=== PATIENT | female | born 1930 | race Caucasian/White ===

== ENCOUNTER → 2016-10-30 | Outpatient (CLI) | payer BC ==
--- NOTE | 2016-10-30 12:26 | MAMMOGRAPHY REPORT ---
BILATERAL DIGITAL SCREENING MAMMOGRAM WITH CAD: 10/30/2016 CLINICAL HISTORY: Routine screening. Patient has no complaints. TECHNIQUE: Current study was also evaluated with a Computer Aided Detection (CAD) system. Bilatera l CC and MLO views were obtained. COMPARISON: Comparison is made to exams dated: 10/14/2015 mammogram, 10/10/2013 mammogram, 10/11/2014 ma mmogram, 08/17/2012 mammogram, 11/24/2011 mammogram, and 11/07/2010 mammogram - [facility] enter. BREAST COMPOSITION: There are scattered areas of fibroglandular density in both breasts. FINDINGS: No suspicious masses, calcifications, or areas of architectural distortion are noted in e ither breast. There has been no significant interval change compared to prior exams. Scattered bila teral benign-appearing calcifications are not significantly changed. Nodular 9 mm asymmetry seen wi thin the right slightly lateral breast middle depth on the cc view is stable dating back to at least the 2008 exam. IMPRESSION: ACR BI-RADS CATEGORY 2: BENIGN There is no mammographic evidence of malignancy. A 1 year screening mammogram is recommended. The p atient will receive written notification of the results. Approximately 10% of breast cancers are not detected with mammography. A negative mammographic repor t should not delay biopsy if a clinically suggestive mass is present. Adrianne Celis M.D. /:10/30/2016 12:04:22 Plier Worker: Katie MOROCHO)(M), [facility] letter sent: Normal 1/2 BI-RADS Code: ACR BI-RADS Category 2: Benign
== END | disposition home or self-care (01) ==
LOC: C.MAMM 10:45
PROVIDERS: ATTEND Internal Medicine
DX: Z12.31 Encounter for screening mammogram for malignant neoplasm of breast (principal)

== ENCOUNTER → 2016-11-09 | Outpatient (CLI) | payer BC ==
[2016-11-09 10:29] LABS: ALKALINE PHOSPHATASE 96 U/L (45-117); ALT/SGPT 24 U/L (12-78); BLOOD UREA NITROGEN 25 mg/dl (7-18); BUN/CREATININE RATIO 24.8 (10-20); CALCIUM 8.8 mg/dl (8.5-10.1); CARBON DIOXIDE 26 mmol/L (21-32); CHLORIDE 111 mmol/L (98-107); CHOLESTEROL 133 mg/dl (0-200); GLUCOSE 84 mg/dl (70-99); POTASSIUM 4.2 mmol/L (3.5-5.1); SODIUM 145 mmol/L (136-145); TRIGLYCERIDES 120 mg/dl (0-150); VERY LOW DENSITY LIPOPROT CALC 24 mg/dl
[2016-11-09 10:36] LABS: ALB/GLOB RATIO 0.9 (0.9-2); AST/SGOT 23 U/L (15-37); CHOLESTEROL/HDL RATIO 3.3; HDL CHOLESTEROL 40 mg/dl; LDL CHOLESTEROL CALCULATED 69 mg/dl
== END | disposition home or self-care (01) ==
LOC: C.LABFOXMH 09:29
PROVIDERS: ATTEND Internal Medicine
DX: E78.5 Hyperlipidemia, unspecified (principal)

== ENCOUNTER → 2016-11-26 | Outpatient (CLI) | payer BC | END | disposition home or self-care (01) | LOC: C.MAMM 09:53 | PROVIDERS: ATTEND Internal Medicine | DX: M85.851 Other specified disorders of bone density and structure, right thigh (principal); M85.852 Other specified disorders of bone density and structure, left thigh ==

== ENCOUNTER → 2017-11-01 | Outpatient (CLI) | payer BC ==
--- NOTE | 2017-11-01 15:52 | MAMMOGRAPHY REPORT ---
BILATERAL DIGITAL SCREENING MAMMOGRAM TOMOSYNTHESIS WITH CAD: 11/01/2017 CLINICAL HISTORY: Routine screening. Patient has no complaints. TECHNIQUE: Breast tomosynthesis in addition to standard 2D mammography was performed. Current study was also evaluated with a Computer Aided Detection (CAD) system. COMPARISON: Comparison is made to exams dated: 10/30/2016 mammogram, 10/14/2015 mammogram, 10/11/2014 ma mmogram, 10/10/2013 mammogram, 08/17/2012 mammogram, and 12/16/2011 mammogram - [facility] nter. BREAST COMPOSITION: There are scattered areas of fibroglandular density in both breasts. FINDINGS: No suspicious masses, calcifications, or areas of architectural distortion are noted in ei ther breast. There has been no significant interval change compared to prior exams. Bilateral asymme tries and scattered bilateral benign-appearing calcifications are not significantly changed. IMPRESSION: ACR BI-RADS CATEGORY 2: BENIGN There is no mammographic evidence of malignancy. A 1 year screening mammogram is recommended. The pa tient will receive written notification of the results. Approximately 10% of breast cancers are not detected with mammography. A negative mammographic report should not delay biopsy if a clinically suggestive mass is present. Adrianne Celis M.D. /:11/01/2017 14:24:43 Small Engine Technician: Estela Baltazar, [facility] letter sent: Normal 1/2 BI-RADS Code: ACR BI-RADS Category 2: Benign
== END | disposition home or self-care (01) ==
LOC: C.MAMM 10:00
PROVIDERS: ATTEND Internal Medicine
DX: Z12.31 Encounter for screening mammogram for malignant neoplasm of breast (principal)

== ENCOUNTER → 2017-11-11 | Outpatient (CLI) | payer BC ==
[2017-11-11 08:50] LABS: ALBUMIN 3.1 gm/dl (3.4-5.0); ALT/SGPT 20 U/L (12-78); BLOOD UREA NITROGEN 26 mg/dl (7-18); CARBON DIOXIDE 26 mmol/L (21-32); CHOLESTEROL 125 mg/dl (0-200); CREATININE 1.12 mg/dl (0.60-1.20); GLUCOSE 81 mg/dl (70-99); POTASSIUM 4.5 mmol/L (3.5-5.1); SODIUM 142 mmol/L (136-145)
[2017-11-11 08:53] LABS: ALKALINE PHOSPHATASE 81 U/L (45-117); AST/SGOT 19 U/L (15-37); LDL CHOLESTEROL CALCULATED 60 mg/dl; TOTAL PROTEIN 6.4 gm/dl (6.4-8.2)
== END | disposition home or self-care (01) ==
LOC: C.LABFOXMH 08:07
PROVIDERS: ATTEND Internal Medicine
DX: E78.5 Hyperlipidemia, unspecified (principal)

== ENCOUNTER 2019-06-12 09:14 | Inpatient (IN) ==
[2019-06-12] MEDS ORDERED: ONDANSETRON INJ 2 MG/ML 2 ML VIAL IV STA (09:32)
[2019-06-12] MEDS: HYDROmorphone INJ 0.5 MG/0.5 ML SYR IV PRN ×3 (09:42→12:20)
[2019-06-12] MEDS ORDERED: SODIUM CHLORIDE 0.9% 500 ML IV SCH (09:45)
[2019-06-12 09:52] LABS: Basophils # (auto) 0.04 K/uL (0-0.2); Basophils % (auto) 0.2 %; Eosinophils % (auto) 1.2 %; Hematocrit (blood only) 42.9 % (37-47); Hemoglobin 13.9 g/dL (12.0-16.0); Immature Granulocytes # (auto) 0.05 K/uL (0.00-0.02); Immature Granulocytes % (auto) 0.3 %; Lymphocytes # (auto) 1.08 K/uL (1.2-3.4); Lymphocytes % (auto) 6.5 %; Mean Corpuscular Hemoglobin 29.6 pg (25-34); Mean Corpuscular Hgb Conc 32.4 g/dL (32-36); Mean Corpuscular Volume 91.3 fL (80-100); Mean Platelet Volume 10.9 fL (7.4-10.4); Monocytes # (auto) 0.06 K/uL (0.11-0.59); Monocytes % (auto) 0.4 %; Neutrophils # (auto) 15.18 K/uL (1.4-6.5); Neutrophils % (auto) 91.4 %; Platelet Count 262 K/uL (130-400); RDW Coefficient of Variation 17.8 % (11.5-14.5); RDW Standard Deviation 60.2 fL (36.4-46.3); White Blood Count 16.61 K/uL (4.8-10.8)
[2019-06-12 10:02] LABS: Albumin Level 3.5 gm/dl (3.4-5.0); BUN Creatinine Ratio 20.5 (10-20); Calcium 9.5 mg/dl (8.5-10.1); Creatinine Clr Calc Pharmacy 29.7 ml/min; Est GFR (African American) 43.5; Est GFR (Non-African American) 37.6; Potassium 4.3 mmol/L (3.5-5.1)
--- NOTE | 2019-06-12 10:02 | CT Scan Report ---
CT abd pelvis wo con CT DOSE: 613.99 mGy.cm HISTORY: Flank pain left flank pain, prior appy, hysterectomy TECHNIQUE: Multiaxial CT images of the abdomen and pelvis were performed without contrast. A dose lo wering technique was utilized adhering to the principles of ALARA. COMPARISON STUDY: None. FINDINGS: Minimal nonspecific bibasilar interstitial change. Small hiatal hernia. Multiple calcified splenic granulomas. Liver and spleen are unremarkable. Right kidney is negative for hydronephrosis. Left kidney shows moderate hydroureteronephrosis. Several punctate nonobstructing mid and lower pole left renal calcifications. There is a 3 mm obstructing calculus mid left ureter. Bladder is midline. Nonobstructive bowel pattern. Findings of chronic sigmoid diverticulosis. IMPRESSION: 1. 3 mm obstructing calculus mid left ureter. 2. Moderate left hydroureteronephrosis. 3. Several nonobstructing mid and lower pole left renal calcifications. The above report was generated using voice recognition software. It may contain grammatical, syntax or spelling errors. Electronically signed by: Jonatan Leach M.D. 06/12/2019 10:01 AM
[2019-06-12 10:04] LABS: Bilirubin,Total 0.4 mg/dl (0.2-1); Globulin 3.6 gm/dl (2.5-4.0); Total Protein 7.1 gm/dl (6.4-8.2)
--- NOTE | 2019-06-12 10:48 | History & Physical Report ---
Date of Service June 12, 2019 Assessment & Plan (1) Ureterolithiasis: (2) PARVIZ (acute kidney injury): (3) Vomiting: (4) Leukocytosis: - Admit to med surg - WBC elevated at 16K, likely secondary to UTI, urine sample was collected at [facility] this morning. I spoke with Justine, nurse at the medical house who reported the UA was trace leuko, trace nitrate. Culture is pending from there. Nurse denies that pt complained of urinary complaints. - Follow UA and UCx - Start on rocephin IV - CT abd/pelvis showing a 3 mm obstructing calculus mid left ureter. Moderate left hydroureteronephrosis. Several nonobstructing mid and lower pole left renal calcifications. - NSS at 150 ml/hr, allow diet if tolerates with antiemetics - Strain all urine - Continuous pulse ox with dilaudid administration and somnolence during exam. Pt requiring supplemental O2 at 6L with sats in mid 90s. Does not wear O2 at baseline. Pt does wake up and participates appropriately with discussion. - Start flomax - Continue MS 2 mg IV Q4H prn and toradol 30 mg IV Q6H prn - Follow am PRP, BUN 26 and Cr. of 1.26, baseline appears to be ~0.90. - Zofran and Tylenol - Consider urology consultation if does not pass stone- pt has not had a kidney stone in the past. (5) Anemia: - Continue iron supplementation (6) DVT prophylaxis: - teds, heparin subq, ambulatory once more awake and with nurse. Pt ambulates at baseline without assistive device. PT/OT consults. Dispo: From [facility], likely to be here 1-2 days in hospital. History of Present Illness Primary Care Provider: [facility] This is an 89 yo F with PMHx of anemia on iron supplementation who presents with acute onset of left sided flank pain and lower abdominal pain which woke her from sleep at 6:44 am. Pt notes she thought this was a pulled muscle initially, so did some stretching and exercise, but did not improve. She went back to bed but pain was not improved with anything. She became nauseous and vomited 5 times since this morning. Pt did not take any of her morning medications today. She has received 2 doses of dilaudid, a total of 1mg, since being in the ER and her pain is essentially resolved, but she is somnolent upon my exam. Her is present at bedside. notes that a urine sample was taken at [facility] and there was possibly a UTI, however urine sample is not available here yet as she has not voided. WBC is 16K, Cr. elevated at 1.28, BUN 26. CT abd/pelvis showing a 3 mm obstructing calculus mid left ureter. Moderate left hydroureteronephrosis. Several nonobstructing mid and lower pole left renal calcifications. Allergies Allergy/AdvReac Type Severity Reaction Status Date / Time No Known Allergies Allergy Unverified 06/12/19 10:11 Home Medications Home Medications Medication Instructions Recorded Confirmed Type acetaminophen [Tylenol Extra 500 mg PO Q6H PRN 06/12/19 06/12/19 History Strength] [id number] 1 tab PO QAM 06/12/19 06/12/19 History [Women's Complex] ferrous sulfate 325 mg PO BID 06/12/19 06/12/19 History ranitidine HCl 150 mg PO BID 06/12/19 06/12/19 History simvastatin 20 mg PO HS 06/12/19 06/12/19 History vit C,W-Od-gdhwn-lutein-zeaxan 1 tab PO QAM 06/12/19 06/12/19 History [PreserVision AREDS-2] Past Med/Surg History Medical History Anemia H/O: hysterectomy Surgical History History of appendectomy Social History Preferred Language: Syriac Communication Ability: Effective Program Management Intern Required: No Beliefs That Will Affect Care: None Current Living Situation: Spouse Other Information That Helps Us Care for You: No Feels Safe at Home: Yes Safety Concerns: Feels Safe At This Time Smoking Status: Never smoker Do You Dip or Chew Tobacco: No ; Second Hand Exposure: No ; Tobacco Cessation Education Requested by Patient: No Hx Alcohol Use: No Hx Substance Use: No Review of Systems Review of Systems: Constitutional: No fever, sweats or chills Eyes: No diplopia, no worsening or blurred vision ENT: normal hearing, no trouble swallowing Respiratory: No cough, sputum, dyspnea at rest or on exertion Cardiovascular: No chest pain, tightness or palpitations Abdomen: As per HPI. No diarrhea or constipation Musculoskeletal: No joint pain, calf pain, swelling Neurologic: No weakness, numbness/tingling, or balance problems Psychiatric: No anxiety or depression Skin: No rash or itch Physical Exam Physical Exam: General: awakens to verbal stimuli, answers questions appropriately, no apparent distress Head: Normocephalic, atraumatic ENT: + pupils are pinpoint, PERRL, EOMI, no pharyngeal exudate, mucous membranes moist Chest: Clear to auscultation, on room air, no adventitious breath sounds Cardiac: Regular rate and rhythm, no murmur, no JVD, normal peripheral pulses, good capillary refill Abdominal: NABS x 4 quadrants, soft, nontender to palpation, no rebound, guarding or tenderness Extremities: Normal inspection, no peripheral edema or erythema, calfs nontender to palpation Psych: Normal mood and affect Neuro: AAO x 3, no motor deficits, speech is clear Results & Data Vital Signs (Past 12 Hours) Vital Signs Temp Pulse Resp BP Pulse Ox 06/12/19 09:26 36.7 C 65 19 165/[address] abd pelvis wo con CT DOSE: 613.99 mGy.cm HISTORY: Flank pain left flank pain, prior appy, hysterectomy TECHNIQUE: Multiaxial CT images of the abdomen and pelvis were performed without contrast. A dose lowering technique was utilized adhering to the principles of ALARA. COMPARISON STUDY: None. FINDINGS: Minimal nonspecific bibasilar interstitial change. Small hiatal hernia. Multiple calcified splenic granulomas. Liver and spleen are unremarkable. Right kidney is negative for hydronephrosis. Left kidney shows moderate hydroureteronephrosis. Several punctate nonobstructing mid and lower pole left renal calcifications. There is a 3 mm obstructing calculus mid left ureter. Bladder is midline. Nonobstructive bowel pattern. Findings of chronic sigmoid diverticulosis. IMPRESSION: 1. 3 mm obstructing calculus mid left ureter. 2. Moderate left hydroureteronephrosis. 3. Several nonobstructing mid and lower pole left renal calcifications. Code Status & VTE Plan Code Status Full Code - discussed with pt and at bedside. Supervising Physician Co-Signing Physician Notes Patient seen and examined, chart reviewed, case discussed with FABRIZIO Gates and I agree with her assessment and plan as documented above. Briefly, patient is an 89-year-old female stenting with a 3 mm obstructing calculus in the mid left ureter. Patient with no prior history of renal stones. Severe pain on presentation now controlled with administration of Dilaudid. On physical exam she is afebrile, mildly hypertensive otherwise hemodynamically stable, no acute distress. She is sleepy after receiving Dilaudid but arousable and answering questions appropriately. Skinintact, no rash HEENTnormocephalic, atraumatic, pupils equal round reactive to light, moist mucous membranes, neck supple HeartS1-S2 present, no murmurs rubs gallops Lungsequal air entry bilaterally, no rales/rhonchi/wheezes Abdomen-bowel sounds present, soft, mildly tender with deep palpation in the lower abdomen, no rebound/guarding/peritoneal signs Extremitiesno edema Labs and images reviewed, significant for WBC=16.61 with increased neutrophils. Mild increase in BUN and Cr to 26 and 1.28. UA positive Assessment/Plan: 89yo C female with obstructing renal stone -Admit to medical floor. Pain/nausea control, IVF/urine strainer, Rocephin. Urology consultation appreciated -Remainder of plan as above PG Care Time/CCT Total # of Minutes Spent Total Time Spent with Patient: Total time spent is greater than 50% in coordination of care (as documented) at patient's floor/unit and/or counseling patient: (1) Leukocytosis Leukocytosis type: unspecified Qualified Code(s): D72.829 - Elevated white blood cell count, unspecified (2) Vomiting Nausea presence: with nausea Vomiting Intractability: non-intractable Vomiting type: unspecified Qualified Code(s): R11.2 - Nausea with vomiting, unspecified
[2019-06-12] MEDS ORDERED: ONDANSETRON INJ 2 MG/ML 2 ML VIAL IV PRN (10:51)
[2019-06-12] MEDS ORDERED: SODIUM CHLORIDE 0.9% 1000ML 1,000 ML IV STA (11:13)
[2019-06-12 12:16] LABS: Appearance Urine Cloudy (Clear); Bacteria Urine Automated 3+ (Negative); Bilirubin Urine Negative (Negative); Blood Urine Trace (Negative); Color Urine Yellow; Epithelial Cell Urine Auto >30 /lpf (0-5); Glucose Urine UA Negative (Negative); Ketones Urine Negative (Negative); Leukocyte Esterase Urine 3+ (Negative); Nitrite Urine Positive (Negative); Protein Urine Negative (Negative); RBC Urine Automated 0-4 /hpf (0-4); Specific Gravity Urine 1.019 (1.000-1.030); Urobilinogen Urine Negative (Negative); WBC Urine Automated >30 /hpf (0-5)
[2019-06-12] MEDS ORDERED: KETOROLAC TROMETHAMINE 15 MG/ML VIAL IV PRN (12:50)
[2019-06-12] MEDS ORDERED: MoRPHine SULFATE 2 MG/ML CARP IV PRN (12:50)
[2019-06-12] MEDS: SODIUM CHLORIDE 0.9% 1000ML 1,000 ML IV SCH ×2 (12:52→20:40)
[2019-06-12] MEDS: TAMSULOSIN HCL 0.4 MG CAP PO SCH (13:10)
[2019-06-12] MEDS: cefTRIAXone SODIUM 1,000 MG in DEXTROSE 5% 50 ML IV SCH (13:11)
--- NOTE | 2019-06-12 16:29 | XRay Report ---
XR chest 1V portable CLINICAL HISTORY: 89 years-old Female presenting with hypoxia. TECHNIQUE: Portable upright AP view of the chest was obtained. COMPARISON: None. FINDINGS: Atherosclerosis of the aortic arch. Cardiac silhouette normal in size. Bibasilar bandlike opacities. Trace left pleural effusion suspected. No pneumothorax. Degenerative changes of the thoracic spine. D egenerative changes of the left glenohumeral joint. Possible underlying osteopenia. Upper abdomen nor mal. IMPRESSION: 1. Bibasilar atelectasis. 2. Suspected trace left pleural effusion. Electronically signed by: Rupesh Mcdowell M.D. 06/12/2019 4:28 PM
--- NOTE | 2019-06-12 16:45 | Emergency Department Note ---
Entered by Jose Ramon Hebert acting as a scribe for Donald Santa MD ED Provider Note CHIEF COMPLAINT: Left flank pain HISTORY OF PRESENT ILLNESS: The patient is an 89 year old female who presents to the Emergency Room with complaints of constant left flank pain that started suddenly this morning about 3 hours ago. The patient rates the pain as an 8/10 and notes nothing makes it better or worse. The patient notes that shortly after the pain woke her up, she developed nausea and started vomiting as well. The patient adds that she also has some pain in her left lower quadrant of her abdomen. The patient was sent here from [facility] where she already provided a urine sample. The patient reports that she has a history of an appendectomy and hysterectomy. She also has a history of anemia and is on iron so her stool is normally dark at baseline. Pt denies LOC, headache, fevers, chills, diaphoresis, visual changes, neck pain, chest pain, breathing difficulties, hematochezia, urinary symptoms, numbness, weakness, lymphadenopathy, rash, or other complaints. REVIEW OF SYSTEMS: See HPI for pertinent positives and negatives. A total of ten systems were reviewed and were otherwise negative. PMHx/PSHx: Anemia, Appendectomy, Hysterectomy SOCIAL HISTORY: Patient lives at an assisted living facility. PHYSICAL EXAM: GENERAL: Awake, alert, uncomfortable-appearing, in moderate distress actively dry heaving on exam. HENT: Normocephalic, atraumatic. Oropharynx unremarkable. EYES: Normal conjunctiva. Sclera non-icteric. NECK: Inspection normal. Non-tender. Supple. No nuchal rigidity. FROM. No masses. RESPIRATORY: Clear to auscultation. No wheezes. No rales. Normal respiratory effort. CARDIAC: Normal rate. Normal rhythm. No murmurs. No rubs. Extremities warm and well perfused. Pulses equal. No JVD. GI: Soft, non-distended. Mild LLQ tenderness. No rebound or guarding. No masses. RECTAL: Deferred. MUSCULOSKELETAL: Atraumatic. Left CVA tenderness. Chest examination reveals no tenderness. The back is symmetrical on inspection without obvious abnormality. No joint edema. LOWER EXTREMITIES: Calves are equal size bilaterally and non-tender. No edema. No discoloration. NEURO: Normal sensorium. No sensory or motor deficits noted. SKIN: No rash or jaundice noted. EMERGENCY DEPARTMENT COURSE: 929: Past medical records reviewed. The patient was evaluated in room A04B, and a complete history and physical examination were performed. 1012: I reevaluated the patient and her nausea has improved, however her pain is only slightly better. 1037: I checked on the patient and her pain is much better following the second dose of pain medications. Given the drop in her O2 saturation I put her on 4L. 1047: I spoke to Dr. Solis - [facility] Hospitalist about the patient's case. She is going to accept the patient for further evaluation. MEDICAL DECISION MAKING: Triage Nursing notes reviewed and agree them. Additional history obtained from the family. The patient's history was concerning for flank and abdominal pain. Differential diagnosis: Etiologies such as renal colic, appendicitis, diverticulitis, mesenteric ischemia, aortic pathology, infections, inflammatory bowel disease, PUD, biliary pathology, UTI, as well as others were entertained. Physical examination findings: As above. ER treatment provided: IV Dilaudid IV Zofran Supplemental oxygen On reassessment the patient felt better. Diagnostic interpretation by me: The labs revealed an unremarkable CBC and chemistry panel except for a leukocytosis which I suspect is from vomiting. Urinalysis pending. Imaging studies: CT scan abdomen pelvis was performed and reveals a 3 mm stone in the proximal right ureter with mild hydronephrosis. The patient is received several doses of IV pain medication and is requiring mesa pplement oxygen as she is sleepy and has some mild respiratory depression. With supplemental oxygen she is doing well. She is in no condition to go home at this time due to the pain from her kidney stone and effects of pain medication. Consultation: A consultation was placed with the hospitalist. The case was discussed and diagnostics were reviewed. The patient was evaluated in the ER for further treatment. IMPRESSION: Ureterolithiasis Left flank pain Vomiting Leukocytosis PLAN: Being evaluated by hospitalist The scribe's documentation has been prepared under my direction and personally reviewed by me in its entirety. I confirm that the note above accurately reflects all work, treatment, procedures, and medical decision making performed by me. Impression & Plan Ureterolithiasis, Left flank pain, Vomiting, Leukocytosis Past Med/Surg History Medical History Anemia H/O: hysterectomy Surgical History History of appendectomy Social History Preferred Language: Sinhala Communication Ability: Effective Infant And Toddler Teacher Required: No Beliefs That Will Affect Care: None Current Living Situation: Spouse Other Information That Helps Us Care for You: No Feels Safe at Home: Yes Safety Concerns: Feels Safe At This Time Smoking Status: Never smoker Do You Dip or Chew Tobacco: No ; Second Hand Exposure: No ; Tobacco Cessation Education Requested by Patient: No Hx Alcohol Use: No Hx Substance Use: No Results & Data Vital Signs Vital Signs - 24 hr 06/12/19 09:26 06/12/19 10:29 06/12/19 10:30 Temperature 36.7 C Temperature Source Oral Sepsis Recent Fever Within 48 Hours No Sepsis New/Unexplained Change in Mental Status No Sepsis Action Taken by Nursing No Action Required Pulse Rate 65 Pulse Rate [Apical] 72 79 Pulse Rhythm Regular Pulse Rhythm [Apical] Regular Regular Pulse Strength Normal Respiratory Rate 19 16 17 Respiratory Effort / Characteristics Non-Labored Spontaneous Non-Labored Spontaneous Non-Labored Spontaneous Respiratory Depth Normal Normal Normal Respiratory Pattern Regular Regular Regular Blood Pressure 165/45 H Blood Pressure [Left Arm] 178/64 H Blood Pressure Mean 85 Blood Pressure Mean [Left Arm] 102 Pulse Oximetry 94 86 L 92 Oxygen Delivery Method Room Air Room Air Nasal Cannula Oxygen Flow Rate 6 Home Medications Current Medication List: was personally reviewed by me Laboratory Data Attestation: I reviewed the patient's lab results. Result diagrams: 06/12/19 09:25 06/12/19 09:25 Lab Results 06/12/19 06/12/19 Range/Units 09:25 09:25 WBC 16.61 H (4.8-10.8) K/uL RBC 4.70 (4.2-5.4) M/uL Hgb 13.9 (12.0-16.0) g/dL Hct 42.9 (37-47) % MCV 91.3 (80-100) fL MCH 29.6 (25-34) pg MCHC 32.4 (32-36) g/dL RDW Std Deviation 60.2 H (36.4-46.3) fL RDW Coeff of Namita 17.8 H (11.5-14.5) % Plt Count 262 (130-400) K/uL MPV 10.9 H (7.4-10.4) fL Immature Gran % (Auto) 0.3 % Neut % (Auto) 91.4 % Lymph % (Auto) 6.5 % [place] % (Auto) 0.4 % Eos % (Auto) 1.2 % Baso % (Auto) 0.2 % Immature Gran # (Auto) 0.05 H (0.00-0.02) K/uL Neut # (Auto) 15.18 H (1.4-6.5) K/uL Lymph # (Auto) 1.08 L (1.2-3.4) K/uL [place] # (Auto) 0.06 L (0.11-0.59) K/uL Eos # (Auto) 0.20 (0-0.5) K/uL Baso # (Auto) 0.04 (0-0.2) K/uL Sodium 144 (136-145) mmol/L Potassium 4.3 (3.5-5.1) mmol/L Chloride 110 H (98-107) mmol/L Carbon Dioxide 25 (21-32) mmol/L Anion Gap 9.0 (3-11) BUN 26 H (7-18) mg/dl Creatinine 1.28 H (0.6-1.2) mg/dl Est Cr Clr Drug Dosing 29.7 ml/min Est GFR ( Amer) 43.5 Est GFR (Non-Af Amer) 37.6 BUN/Creatinine Ratio 20.5 H (10-20) Glucose 133 H (70-99) mg/dl Calcium 9.5 (8.5-10.1) mg/dl Total Bilirubin 0.4 (0.2-1) mg/dl AST 17 (15-37) U/L ALT 22 (12-78) U/L Alkaline Phosphatase 91 (45-117) U/L Total Protein 7.1 (6.4-8.2) gm/dl Albumin 3.5 (3.4-5.0) gm/dl Globulin 3.6 (2.5-4.0) gm/dl Albumin/Globulin Ratio 1.0 (0.9-2) Lipase 215 (73-393) U/L Administered Medications Sodium Chloride (Nss 1000ml) 1,000 mls @ 125 mls/hr IV .Q8H STA Stop: 09/09/19 19:12 Last Infusion: 06/12/19 13:34 Dose: 0 mls/hr Documented by: [id number] Admin: 06/12/19 11:20 Dose: 125 mls/hr Documented by: [id number] Sodium Chloride (Nss 1000ml) 1,000 mls @ 150 mls/hr IV .Q6H40M RENETTA Stop: 07/12/19 12:49 Last Admin: 06/12/19 12:52 Dose: 150 mls/hr Documented by: [id number] Ceftriaxone Sodium 1,000 mg/ (Dextrose) 50 mls @ 100 mls/hr IV Q24H RENETTA; Protocol Stop: 06/17/19 12:59 Last Infusion: 06/12/19 13:41 Dose: 0 mls/hr Documented by: [id number] Admin: 06/12/19 13:11 Dose: 100 mls/hr Documented by: [id number] Ondansetron HCl (Zofran) 4 mg IV Q4H PRN PRN Reason: Nausea And Vomiting Stop: 07/12/19 10:50 Last Admin: 06/12/19 15:53 Dose: 4 mg Documented by: [id number] Tamsulosin HCl (Flomax) 0.4 mg PO QAM RENETTA Stop: 07/12/19 13:14 Last Admin: 06/12/19 13:10 Dose: 0.4 mg Documented by: [id number] Discontinued Medications Hydromorphone HCl (Dilaudid) 0.5 mg IV Q15M PRN PRN Reason: Pain Stop: 06/26/19 09:31 Last Admin: 06/12/19 12:20 Dose: 0.5 mg Documented by: [id number] Admin: 06/12/19 10:05 Dose: 0.5 mg Documented by: [id number] Admin: 06/12/19 09:42 Dose: 0.5 mg Documented by: [id number] Sodium Chloride (Nss) 500 mls @ 999 mls/hr IV .Q31M RENETTA Stop: 06/12/19 10:15 Last Infusion: 06/12/19 10:51 Dose: 0 mls/hr Documented by: [id number] Admin: 06/12/19 09:42 Dose: 999 mls/hr Documented by: [id number] Morphine Sulfate (Morphine Sulfate) 2 mg IV Q4 PRN PRN Reason: Pain Stop: 06/26/19 12:49 Last Admin: 06/12/19 14:33 Dose: 2 mg Documented by: [id number] Ondansetron HCl (Zofran) 4 mg IV NOW STA Stop: 06/12/19 09:33 Last Admin: 06/12/19 09:42 Dose: 4 mg Documented by: [id number] Imaging Data Radiologist's Impression: Radiology results as stated below per my review and the radiologist's interpretation: CT abd pelvis wo con CT DOSE: 613.99 mGy.cm HISTORY: Flank pain left flank pain, prior appy, hysterectomy TECHNIQUE: Multiaxial CT images of the abdomen and pelvis were performed without contrast. A dose lowering technique was utilized adhering to the principles of ALARA. COMPARISON STUDY: None. FINDINGS: Minimal nonspecific bibasilar interstitial change. Small hiatal hernia. Multiple calcified splenic granulomas. Liver and spleen are unremarkable. Right kidney is negative for hydronephrosis. Left kidney shows moderate hydroureteronephrosis. Several punctate nonobstructing mid and lower pole left renal calcifications. There is a 3 mm obstructing calculus mid left ureter. Bladder is midline. Nonobstructive bowel pattern. Findings of chronic sigmoid diverticulosis. IMPRESSION: 1. 3 mm obstructing calculus mid left ureter. 2. Moderate left hydroureteronephrosis. 3. Several nonobstructing mid and lower pole left renal calcifications. The above report was generated using voice recognition software. It may contain grammatical, syntax or spelling errors. Electronically signed by: Jonatan Leach M.D. 06/12/2019 10:01 AM ECG Data Attestation: I personally reviewed and interpreted this ECG as follows: Indication: vomiting Rate (beats per minute): 70 Rhythm: sinus with SA Findings: no PVC, no ST depression and no ST elevation Blood Pressure Blood Pressure Findings: Elevated blood pressure Blood Pressure Disposition: Referred to patients primary care provider Discharge Plan Visit Data *Final* Discharge Date/Time: 06/12/19 12:16 Chief Complaint: Flank Pain ED Provider: Donald Santa Discharge Problem: Ureterolithiasis, Left flank pain, Vomiting, Leukocytosis Patient Disposition: Admitted As Inpatient Discharge Instructions Interventions: ED Discharge Assessment Last Done: 06/12/19 12:16 Discharge Problem: Vomiting Qualifiers: Vomiting type: unspecified Vomiting Intractability: non-intractable Nausea presence: with nausea Qualified Code(s): R11.2 - Nausea with vomiting, unspecified Leukocytosis Qualifiers: Leukocytosis type: unspecified Qualified Code(s): D72.829 - Elevated white blood cell count, unspecified The scribe's documentation has been prepared under my direction and personally reviewed by me in its entirety. I confirm that the note above accurately reflects all work, treatment, procedures, and medical decision making performed by me.
[2019-06-12 17:14] LABS: Base Excess ABG -3.3 mEq/L (-9-1.8); HCO3 ABG 20 mmol/L (19-24); Oxygen Saturation ABG 89.6 % (90-95); PCO2 ABG 32 mmHg (35-46); PO2 ABG 58 mm/Hg (80-95); pH ABG 7.42 (7.35-7.45)
[2019-06-12 17:15] LABS: Allen Test Pos (Pos)
[2019-06-12 20:14] LABS: Appearance Urine Cloudy (Clear); Bacteria Urine Automated 2+ (Negative); Bilirubin Urine Negative (Negative); Blood Urine Trace (Negative); Color Urine Yellow; Glucose Urine UA Negative (Negative); Ketones Urine Negative (Negative); Leukocyte Esterase Urine 2+ (Negative); Nitrite Urine Positive (Negative); Protein Urine Negative (Negative); Specific Gravity Urine 1.019 (1.000-1.030); Urobilinogen Urine Negative (Negative); WBC Urine Automated >30 /hpf (0-5)
[2019-06-12] MEDS: HEPARIN SOD 5,000 UNIT/0.5 ML VIAL SQ SCH (20:35)
[2019-06-12] MEDS: SIMVASTATIN 20 MG TAB PO SCH (20:35)
[2019-06-12] MEDS: FERROUS SULFATE 325 MG TAB PO SCH (20:35)
[2019-06-12] MEDS: ACETAMINOPHEN 325 MG TAB PO PRN (23:04)
[2019-06-13] MEDS: SODIUM CHLORIDE 0.9% 1000ML 1,000 ML IV SCH ×4 (03:12→23:31)
[2019-06-13 06:20] LABS: Hematocrit (blood only) 35.5 % (37-47); Hemoglobin 11.5 g/dL (12.0-16.0); Mean Corpuscular Hemoglobin 29.7 pg (25-34); Mean Corpuscular Hgb Conc 32.4 g/dL (32-36); Mean Corpuscular Volume 91.7 fL (80-100); Platelet Count 157 K/uL (130-400); RDW Coefficient of Variation 18.3 % (11.5-14.5); RDW Standard Deviation 62.2 fL (36.4-46.3); Red Blood Count 3.87 M/uL (4.2-5.4)
[2019-06-13 06:55] LABS: Albumin Globulin Ratio 0.7 (0.9-2); Albumin Level 2.4 gm/dl (3.4-5.0); BUN Creatinine Ratio 14.2 (10-20); Bilirubin,Total 0.3 mg/dl (0.2-1); Calcium 7.9 mg/dl (8.5-10.1); Creatinine Clr Calc Pharmacy 17.6 ml/min; Est GFR (African American) 23.1; Est GFR (Non-African American) 19.9; Globulin 3.2 gm/dl (2.5-4.0); Potassium 4.6 mmol/L (3.5-5.1); Total Protein 5.6 gm/dl (6.4-8.2)
[2019-06-13] MEDS: ACETAMINOPHEN 325 MG TAB PO PRN ×3 (06:58→23:31)
--- NOTE | 2019-06-13 08:31 | Urology Consultation ---
Date of Consultation June 13, 2019 Assessment & Plan (1) Left ureteral stone: 89yo F with 3mm left midureteral stone, moderate hydro; nitrite positive UA and leukocytosis this AM. Pt appears clinically stable, however I am concerned regarding her elevated WBC and Cr this AM. Requiring 5LNC with soft BP this AM. She is empirically on Rocephin while awaiting UC&S results. Keep NPO. I discussed these concerns with patient. She is agreeable to proceed with procedure if indicated today. We discussed possible need for ureteral stenting. Findings reviewed with Dr. Carrasquillo. Given her PARVIZ, leukocytosis in the context of an obstructing left ureteral stone, will proceed with OR for cysto, Left retrograde pyelogram and Left stent placement. Risks and benefits to be reviewed with patient by Dr. Carrasqulilo. OR notified. Preoperative CXR and EKG completed. On Rocephin empirically. History of Present Illness Reason for Consultation: stone Requesting Physician: Dr Pitts Attending Physician: Beronica Pitts MD History of Present Illness 89yo, very active, female admitted last evening through [facility] ED fwith complaints of severe left flank pain. CT imaging reveals 3mm left midureteral stone, moderate hydronephrosis. Multiple tiny left renal stones. UA nitrite positive. This AM, her WBC elevated to 36k, Cr elevated to 2.6. She is afebrile however, SBP had dropped from 150 to 100 this AM She also requires 5LNC presently which is new for her. She denies chest pain, shortness of breath. Denies pain at this time. Voiding into strainer consistently, no stone passage noted. I visualized strainer myself. This is her first ever stone. Otherwise healthy, lives independently at [facility]. [facility]. Allergies Allergy/AdvReac Type Severity Reaction Status Date / Time No Known Allergies Allergy Unverified 06/12/19 10:11 Home Medications Home Medications Medication Instructions Recorded Confirmed Type acetaminophen [Tylenol Extra 500 mg PO Q6H PRN 06/12/19 06/12/19 History Strength] [id number] 1 tab PO QAM 06/12/19 06/12/19 History [Women's Complex] ferrous sulfate 325 mg PO BID 06/12/19 06/12/19 History ranitidine HCl 150 mg PO BID 06/12/19 06/12/19 History simvastatin 20 mg PO HS 06/12/19 06/12/19 History vit C,V-Gl-dbjel-lutein-zeaxan 1 tab PO QAM 06/12/19 06/12/19 History [PreserVision AREDS-2] Patient History Medical History Anemia H/O: hysterectomy Surgical History History of appendectomy Social History Preferred Language: Israeli Communication Ability: Effective Restaurant Hourly Manager Required: No Beliefs That Will Affect Care: None Current Living Situation: Spouse Other Information That Helps Us Care for You: No Feels Safe at Home: Yes Safety Concerns: Feels Safe At This Time Smoking Status: Never smoker Do You Dip or Chew Tobacco: No ; Second Hand Exposure: No ; Tobacco Cessation Education Requested by Patient: No Hx Alcohol Use: No Hx Substance Use: No Review of Systems Review of Systems: Constitutional: Denies fever, chills, sweats, malaise Eyes: Denies problem reported ENMT: Denies dizziness Resp: Denies cough, Denies shortness of breath CV: Denies JVD GI: Denies nausea/vomiting : Denies suprapubic or flank pain, dysuria, urgency, frequency, hematuria MS: Denies swelling, stiffness Integ: Denies rash, erythema Neuro: Denies falls, weakness Psych: Denies behavior change Endo: Denies polyphagia, polydipsia Heme: Denies easy bleeding Physical Exam Constitutional: no acute distress and not ill appearing Eyes: no nystagmus ENMT: Ears: no hearing impairment Neck: trachea midline Respiratory: no respiratory distress and no cough Cardiovascular: Vessels: no JVD Chest (Breasts): Chest: normal inspection of chest Gastrointestinal (Abdomen): Inspection/Auscultation: abdomen not distended and no abdominal edema Percussion/Palpation: abdomen soft; abdomen nontender Musculoskeletal: Head/Neck/Chest: normocephalic and head atraumatic Skin: no rashes, warm and dry Neurologic: awake; not confused and not obtunded Psychiatric: Orientation: alert and oriented x 3 Eye Contact: good eye contact Affect: no depressed affect Genitourinary: bladder nondistended Lymphatic: no lymphadenopathy and no lymphedema Results & Data Vital Signs (Past 12 Hours) Vital Signs Temp Pulse Resp BP BP Pulse Ox Pulse Ox 06/13/19 08:05 97 06/13/19 07:35 36.9 C 78 18 102/57 L 98 06/12/19 23:30 37.4 C 93 H 16 94/58 L 94 06/12/19 22:58 92
[2019-06-13] MEDS: FERROUS SULFATE 325 MG TAB PO SCH ×2 (08:48→20:19)
[2019-06-13] MEDS: HEPARIN SOD 5,000 UNIT/0.5 ML VIAL SQ SCH (08:48)
[2019-06-13] MEDS: TAMSULOSIN HCL 0.4 MG CAP PO SCH (08:48)
[2019-06-13] MEDS: CEROVITE ADV FORMULA TAB PO SCH (08:48)
[2019-06-13] MEDS ORDERED: [UNRECOGNIZED DRUG - OTHER] PO SCH (09:00)
--- NOTE | 2019-06-13 09:15 | History & Physical Bridge Note ---
Date of Service June 13, 2019 History & Physical Bridge Note I have examined the patient, reviewed the History & Physical and in the interval since the performance of the History & Physical I have noted the following changes of clinical significance: no changes noted
[2019-06-13] MEDS ORDERED: ePHEDrine sulfate 50 MG/ML SYR ONE (09:24)
[2019-06-13] MEDS ORDERED: PROPOFOL IV EMULSION 10 MG/ML 20 ML VIAL IV ONE (09:24)
[2019-06-13] MEDS ORDERED: LIDOCAINE HCL 2% 2 ML VIAL/AMP(20MG/ML) INFIL ONE (09:24)
[2019-06-13] MEDS ORDERED: PHENYLEPHRINE 100MCG/ML 5ML SYR ONE (09:24)
[2019-06-13] MEDS ORDERED: fentaNYL citrate 100 MCG/2 ML VIAL ONE (09:25)
--- NOTE | 2019-06-13 09:39 | Anesthesiology Consultation ---
Date of Service June 13, 2019 Assessment & Plan (1) Encounter for pre-operative examination: Chart Review Chart Review: Acceptable Risk for Surgery and Patient NOT seen in Pre Admission Testing Consults Requested none History Surgery Operation Date: 06/13/19 07:00 Proposed Procedures p Cystoscopy, Left Retrograde Pyelogram, Left Stent Placement, Laser Lithotripsy, Basket Stone Extraction, Possible Ureteroscopy - John Carrasquillo MD Height/Weight Height: 5 ft 2 in Weight: 76.7 kg Allergies Allergy/AdvReac Type Severity Reaction Status Date / Time No Known Allergies Allergy Unverified 06/12/19 10:11 Medications Home Medications Medication Instructions Recorded Confirmed Last Taken acetaminophen [Tylenol Extra 500 mg PO Q6H PRN 06/12/19 06/12/19 06/12/19 Strength] 1000mg [id number] 1 tab PO QAM 06/12/19 06/12/19 06/11/19 [Women's Complex] ferrous sulfate 325 mg PO BID 06/12/19 06/12/19 06/11/19 ranitidine HCl 150 mg PO BID 06/12/19 06/12/19 06/11/19 simvastatin 20 mg PO HS 06/12/19 06/12/19 06/11/19 vit C,S-Sv-aztoy-lutein-zeaxan 1 tab PO QAM 06/12/19 06/12/19 06/11/19 [PreserVision AREDS-2] Active Medications Generic Name Dose Route Start Last Admin Trade Name Freq PRN Reason Stop Dose Admin Acetaminophen 650 mg 06/12/19 10:51 06/13/19 06:58 Tylenol PO 07/12/19 10:50 650 mg Q4H PRN Administration Moderate Pain Ferrous Sulfate 325 mg 06/12/19 21:00 06/13/19 08:48 Feosol PO 07/12/19 20:59 325 mg BID RENETTA Administration Heparin Sodium (Porcine) 5,000 units 06/12/19 21:00 06/13/19 08:48 Heparin Sodium (Porcine) SQ 07/12/19 20:59 5,000 units Q12 RENETTA Administration Sodium Chloride 1,000 mls @ 150 mls/hr 06/12/19 12:50 06/13/19 08:48 Nss 1000ml IV 07/12/19 12:49 150 mls/hr .Q6H40M RENETTA Administration Ceftriaxone Sodium 1,000 mg/ 50 mls @ 100 mls/hr 06/12/19 13:00 06/12/19 13:41 Dextrose IV 06/17/19 12:59 Infused Q24H RENETTA Infusion Protocol Multivitamins/Minerals 1 tab 06/13/19 09:00 06/13/19 08:48 Multivitamin W/ Minerals Tab PO 07/13/19 08:59 1 tab QAM RENETTA Administration Protocol Ondansetron HCl 4 mg 06/12/19 10:51 06/12/19 15:53 Zofran IV 07/12/19 10:50 4 mg Q4H PRN Administration Nausea And Vomiting Ranitidine HCl 150 mg 06/12/19 21:00 06/13/19 08:48 Zantac PO 07/12/19 20:59 150 mg BID RENETTA Administration Simvastatin 20 mg 06/12/19 21:00 06/12/19 20:35 Zocor PO 07/12/19 20:59 20 mg HS RENETTA Administration Tamsulosin HCl 0.4 mg 06/12/19 13:15 06/13/19 08:48 Flomax PO 07/12/19 13:14 0.4 mg QAM RENETTA Administration Past Medical History Medical History Anemia H/O: hysterectomy Past Surgical History Surgical History History of appendectomy Social History Smoking Status: Never smoker Do You Dip or Chew Tobacco: No Hx Alcohol Use: No Hx Substance Use: No substance use type: does not use Physical Exam Vital Signs Last Vital Signs Temp 36.7 C 06/13/19 09:27 Pulse 82 06/13/19 09:27 Resp 20 06/13/19 09:27 BP 119/58 L 06/13/19 09:27 Pulse Ox 97 06/13/19 08:05 Testing Laboratory Results 06/13/19 05:39 06/13/19 05:39 Urine Color Yellow 06/12/19 20:00 Urine Appearance Cloudy (Clear) A 06/12/19 20:00 Urine pH 5.0 (4.5-7.5) 06/12/19 20:00 Ur Specific [place] 1.019 (1.000-1.030) 06/12/19 20:00 Urine Protein Negative (Negative) 06/12/19 20:00 Urine Glucose (UA) Negative (Negative) 06/12/19 20:00 Urine Ketones Negative (Negative) 06/12/19 20:00 Urine Nitrite Positive (Negative) A 06/12/19 20:00 Ur Leukocyte Esterase 2+ (Negative) H 06/12/19 20:00 Urine WBC (Auto) >30 /hpf (0-5) H 06/12/19 20:00 Urine RBC (Auto) 5-10 /hpf (0-4) H 06/12/19 20:00 U Hyaline Cast (Auto) 1-5 /lpf (0-5) 06/12/19 20:00 U Epithel Cells (Auto) 5-10 /lpf (0-5) H 06/12/19 20:00 Urine Bacteria (Auto) 2+ (Negative) H 06/12/19 20:00
[2019-06-13] MEDS ORDERED: ePHEDrine sulfate 50 MG/ML AMP IV PRN (09:44)
[2019-06-13] MEDS ORDERED: fentaNYL citrate 100 MCG/2 ML VIAL IV PRN (09:44)
[2019-06-13] MEDS ORDERED: ATROPINE SULFATE 0.1 MG/ML 10ML SYR IV PRN (09:44)
--- NOTE | 2019-06-13 10:45 | Fluoroscopy Report ---
INTRAOPERATIVE RADIOGRAPH CLINICAL HISTORY: Left-sided ureteral stent placement. Fluoroscopy time: 6 seconds. FINDINGS: A single spot fluoroscopic view of the left upper quadrant from a ureteral stent placement procedure is presented. The proximal end of a ureteral stent is visualized and projects over the left renal pelvis. No calcification is seen along the proximal and of the stent. IMPRESSION: Intraoperative image from a left ureteral stent placement procedure as above. Electronically signed by: Massimo Nicole M.D. 06/13/2019 10:43 AM
[2019-06-13] MEDS: cefTRIAXone SODIUM 1,000 MG in DEXTROSE 5% 50 ML IV SCH (12:17)
--- NOTE | 2019-06-13 12:34 | Hospitalist Progress Note ---
Date of Service June 13, 2019 Assessment & Plan (1) Sepsis: - Urosepsis in setting of left sided stone -- see below. - Leukocytosis, hypotension with positive urinalysis. - Continue IV fluid hydration at 150 cc/hr. (2) Hypotension: - SBP 90's in setting of urosepsis -- on IV fluids at 150 cc/hr. - Will continue to monitor; bolus prn. - Not on home anti-hypertensives. (3) Ureterolithiasis: - CT A/P with 3 mm obstructing calculus of mid left ureter, moderate left hydroureteronephrosis and several non obstructing mid and lower pole left renal calcifications. - Urology consulted, appreciate input. Will require left sided stent placement today. - Continue NS at 150 cc/hr. - Hold Flomax due to hypotension. - Zofran prn nausea/vomiting; hold Toradol due to ARF. (4) UTI (urinary tract infection): - U/a positive, UC pos for gram negative bacilli. - Continue Ceftriaxone for empiric coverage, will follow sensitivities. - U/a was collected at [facility] and was positive. (5) Leukocytosis: - WBC increased to 36.4 in setting of obstructive left sided stone and UTI. - Will continue to trend CBC daily. (6) Acute respiratory failure with hypoxia: - Has been requiring 4-5L via NC. - CXR showed bibasilar atelectasis, suspected trace left pleural effusion. - Encourage IS use q1hr WA. (7) PARVIZ (acute kidney injury): - Creatinine increased to 2.16, related to obstruction in setting of left sided stone. - Continue NS at 150 cc/hr. - Urology planning for left stent placement as noted above. - Monitor renal function daily -- expect improvement after procedure. (8) HLD (hyperlipidemia): - Continue statin as prescribed. (9) Anemia: - Hgb trending down as expected with IV fluid hydration. - H/o iron deficiency anemia, most recent iron studies in March 2019. Will continue home ferrous sulfate supplementation. (10) DVT prophylaxis: - TEDs, SCDs; holding Heparin for procedure. Dispo: Med/surg for urosepsis, urologic intervention. Supervising Physician Co-Signing Physician Notes PA Supervision Note: I did not personally see or examine the patient today, but I verified all daly points of FABRIZIO Watts's assessment and plan with the following exceptions/additions: None Subjective Pt. is lethargic post op. She denies left flank pain, nausea/vomiting. Is having hematuria -- voided x 2 post op but denies dysuria. Review of Systems Review of Systems: All systems reviewed & are unremarkable except as noted in HPI & below Constitutional: + fatigue and + weakness; no fever and no chills Respiratory: no cough, no dyspnea and no dyspnea on exertion Cardiovascular: no chest pain, no palpitations and no edema Gastrointestinal: no abdominal pain, no nausea, no vomiting, no constipation and no diarrhea/loose stools Genitourinary: + hematuria; no dysuria and no difficulty urinating Musculoskeletal: no back pain and no joint pain Integumentary: no non-healing lesions Physical Exam Physical Exam: General: Resting comfortably HEENT: NC/AT; PERRLA with EOMI; Claude conjunctiva, MMM. No erythema of posterior pharynx Neck: Supple and nontender Cardiac: RRR Lungs: CTA bilaterally Abdomen: Bowel normoactive X 4; Nontender to palpation Extremities: Warm. No edema present Neuro: No focal weakness Skin: No rash Results & Data Vital Signs (Past 12 Hours) Vital Signs Temp Pulse Pulse Resp BP BP Pulse Ox 06/13/19 12:02 78 16 96/32 L 94 06/13/19 11:44 36.5 C 98 H 18 105/62 92 06/13/19 11:00 36.1 C L 76 14 99/60 L 91 06/13/19 10:50 74 22 107/55 L 94 06/13/19 10:40 36.2 C L 75 21 102/57 L 93 06/13/19 10:30 81 23 101/55 L 92 06/13/19 10:22 36.2 C L 81 16 90/47 L 91 06/13/19 09:27 36.7 C 82 20 119/58 L 119/58 L 06/13/19 08:05 06/13/19 07:35 36.9 C 78 18 102/57 L 98 Pulse Ox 06/13/19 12:02 06/13/19 11:44 06/13/19 11:00 06/13/19 10:50 06/13/19 10:40 06/13/19 10:30 06/13/19 10:22 06/13/19 09:27 06/13/19 08:05 97 06/13/19 07:35 Laboratory Results 06/13/19 06/13/19 06/12/19 Range/Units 05:39 05:39 20:00 WBC 36.40 H* D (4.8-10.8) K/uL RBC 3.87 L (4.2-5.4) M/uL Hgb 11.5 L (12.0-16.0) g/dL Hct 35.5 L (37-47) % MCV 91.7 (80-100) fL MCH 29.7 (25-34) pg MCHC 32.4 (32-36) g/dL RDW Std Deviation 62.2 H (36.4-46.3) fL RDW Coeff of Namita 18.3 H (11.5-14.5) % Plt Count 157 (130-400) K/uL MPV 10.0 (7.4-10.4) fL ABG pH (7.35-7.45) ABG pCO2 (35-46) mmHg ABG pO2 (80-95) mm/Hg ABG HCO3 (19-24) mmol/L ABG O2 Saturation (90-95) % ABG Base Excess (-9-1.8) mEq/L Yasri Test (Pos) Barometric Pressure mm/Hg Oxygen Given Sodium 142 (136-145) mmol/L Potassium 4.6 (3.5-5.1) mmol/L Chloride 111 H (98-107) mmol/L Carbon Dioxide 22 (21-32) mmol/L Anion Gap 9.0 (3-11) BUN 31 H (7-18) mg/dl Creatinine 2.16 H D (0.6-1.2) mg/dl Est Cr Clr Drug Dosing 17.6 ml/min Est GFR ( Amer) 23.1 Est GFR (Non-Af Amer) 19.9 BUN/Creatinine Ratio 14.2 (10-20) Glucose 95 (70-99) mg/dl Calcium 7.9 L D (8.5-10.1) mg/dl Total Bilirubin 0.3 (0.2-1) mg/dl AST 21 (15-37) U/L ALT 16 (12-78) U/L Alkaline Phosphatase 79 (45-117) U/L Total Protein 5.6 L D (6.4-8.2) gm/dl Albumin 2.4 L (3.4-5.0) gm/dl Globulin 3.2 (2.5-4.0) gm/dl Albumin/Globulin Ratio 0.7 L (0.9-2) Urine Color Yellow Urine Appearance Cloudy A (Clear) Urine pH 5.0 (4.5-7.5) Ur Specific [place] 1.019 (1.000-1.030) Urine Protein Negative (Negative) Urine Glucose (UA) Negative (Negative) Urine Ketones Negative (Negative) Urine Blood Trace H (Negative) Urine Nitrite Positive A (Negative) Urine Bilirubin Negative (Negative) Urine Urobilinogen Negative (Negative) Ur Leukocyte Esterase 2+ H (Negative) Urine WBC (Auto) >30 H (0-5) /hpf Urine RBC (Auto) 5-10 H (0-4) /hpf U Hyaline Cast (Auto) 1-5 (0-5) /lpf U Epithel Cells (Auto) 5-10 H (0-5) /lpf Urine Bacteria (Auto) 2+ H (Negative) 06/12/19 Range/Units 17:00 WBC (4.8-10.8) K/uL RBC (4.2-5.4) M/uL Hgb (12.0-16.0) g/dL Hct (37-47) % MCV (80-100) fL MCH (25-34) pg MCHC (32-36) g/dL RDW Std Deviation (36.4-46.3) fL RDW Coeff of Namita (11.5-14.5) % Plt Count (130-400) K/uL MPV (7.4-10.4) fL ABG pH 7.42 (7.35-7.45) ABG pCO2 32 L (35-46) mmHg ABG pO2 58 L (80-95) mm/Hg ABG HCO3 20 (19-24) mmol/L ABG O2 Saturation 89.6 L (90-95) % ABG Base Excess -3.3 (-9-1.8) mEq/L Yasir Test Pos (Pos) Barometric Pressure 737.4 mm/Hg Oxygen Given 10L Sodium (136-145) mmol/L Potassium (3.5-5.1) mmol/L Chloride (98-107) mmol/L Carbon Dioxide (21-32) mmol/L Anion Gap (3-11) BUN (7-18) mg/dl Creatinine (0.6-1.2) mg/dl Est Cr Clr Drug Dosing ml/min Est GFR ( Amer) Est GFR (Non-Af Amer) BUN/Creatinine Ratio (10-20) Glucose (70-99) mg/dl Calcium (8.5-10.1) mg/dl Total Bilirubin (0.2-1) mg/dl AST (15-37) U/L ALT (12-78) U/L Alkaline Phosphatase (45-117) U/L Total Protein (6.4-8.2) gm/dl Albumin (3.4-5.0) gm/dl Globulin (2.5-4.0) gm/dl Albumin/Globulin Ratio (0.9-2) Urine Color Urine Appearance (Clear) Urine pH (4.5-7.5) Ur Specific [place] (1.000-1.030) Urine Protein (Negative) Urine Glucose (UA) (Negative) Urine Ketones (Negative) Urine Blood (Negative) Urine Nitrite (Negative) Urine Bilirubin (Negative) Urine Urobilinogen (Negative) Ur Leukocyte Esterase (Negative) Urine WBC (Auto) (0-5) /hpf Urine RBC (Auto) (0-4) /hpf U Hyaline Cast (Auto) (0-5) /lpf U Epithel Cells (Auto) (0-5) /lpf Urine Bacteria (Auto) (Negative) PG Care Time/CCT Total # of Minutes Spent Total Time Spent with Patient: Total time spent is greater than 50% in coordination of care (as documented) at patient's floor/unit and/or counseling patient: (1) Leukocytosis Leukocytosis type: unspecified Qualified Code(s): D72.829 - Elevated white blood cell count, unspecified
--- NOTE | 2019-06-13 13:22 | Anesthesiology Progress Note ---
Date of Service June 13, 2019 Anesthesia Post Procedure Vital Signs Vital Signs: Temp Pulse Pulse Resp BP BP Pulse Ox 06/13/19 13:00 36.8 C 77 18 96/58 L 96 06/13/19 12:02 78 16 96/32 L 94 06/13/19 11:44 36.5 C 98 H 18 105/62 92 06/13/19 11:00 36.1 C L 76 14 99/60 L 91 06/13/19 10:50 74 22 107/55 L 94 06/13/19 10:40 36.2 C L 75 21 102/57 L 93 06/13/19 10:30 81 23 101/55 L 92 06/13/19 10:22 36.2 C L 81 16 90/47 L 91 06/13/19 09:27 36.7 C 82 20 119/58 L 119/58 L 06/13/19 08:05 06/13/19 07:35 36.9 C 78 18 102/57 L 98 06/12/19 23:30 37.4 C 93 H 16 94/58 L 94 06/12/19 22:58 06/12/19 19:11 100 H 92 06/12/19 17:20 118 H 14 94 06/12/19 16:12 116 H 130/79 89 L 06/12/19 15:18 37.2 C 100 H 24 139/73 92 06/12/19 15:15 Pulse Ox 06/13/19 13:00 06/13/19 12:02 06/13/19 11:44 06/13/19 11:00 06/13/19 10:50 06/13/19 10:40 06/13/19 10:30 06/13/19 10:22 06/13/19 09:27 06/13/19 08:05 97 06/13/19 07:35 06/12/19 23:30 06/12/19 22:58 92 06/12/19 19:11 06/12/19 17:20 06/12/19 16:12 06/12/19 15:18 06/12/19 15:15 88 L Pain Intensity Left Flank: Pain Intensity: 4 Transfer of Care Handoff Completed per policy Notes Mental Status: alert / awake / arousable Patient Amnestic to Procedure: Yes Nausea / Vomiting: adequately controlled Pain: adequately controlled Airway Patency, RR, SpO2: stable & adequate BP & HR: stable & adequate Hydration State: stable & adequate Anesthetic Complications: no major complications apparent and Pt Satisfied with anesthetic care
[2019-06-13] MEDS ORDERED: MoRPHine SULFATE 2 MG/ML CARP IV PRN (16:02)
[2019-06-13] MEDS: SIMVASTATIN 20 MG TAB PO SCH (20:19)
[2019-06-14] MEDS: ACETAMINOPHEN 325 MG TAB PO PRN ×3 (05:26→20:27)
[2019-06-14] MEDS: SODIUM CHLORIDE 0.9% 1000ML 1,000 ML IV SCH (05:26)
[2019-06-14 06:14] LABS: Hematocrit (blood only) 35.7 % (37-47); Hemoglobin 11.5 g/dL (12.0-16.0); Mean Corpuscular Hemoglobin 29.3 pg (25-34); Mean Corpuscular Hgb Conc 32.2 g/dL (32-36); Mean Corpuscular Volume 90.8 fL (80-100); Mean Platelet Volume 10.5 fL (7.4-10.4); Platelet Count 147 K/uL (130-400); RDW Coefficient of Variation 18.5 % (11.5-14.5); RDW Standard Deviation 61.8 fL (36.4-46.3); Red Blood Count 3.93 M/uL (4.2-5.4); White Blood Count 30.09 K/uL (4.8-10.8)
[2019-06-14 06:41] LABS: Albumin Globulin Ratio 0.7 (0.9-2); Albumin Level 2.4 gm/dl (3.4-5.0); BUN Creatinine Ratio 20.5 (10-20); Bilirubin,Total 0.4 mg/dl (0.2-1); Calcium 7.9 mg/dl (8.5-10.1); Creatinine Clr Calc Pharmacy 36.9 ml/min; Est GFR (African American) 56.6; Est GFR (Non-African American) 48.8; Globulin 3.3 gm/dl (2.5-4.0); Potassium 3.6 mmol/L (3.5-5.1); Total Protein 5.7 gm/dl (6.4-8.2)
[2019-06-14] MEDS: FERROUS SULFATE 325 MG TAB PO SCH ×2 (07:54→20:21)
[2019-06-14] MEDS: CEROVITE ADV FORMULA TAB PO SCH (07:54)
--- NOTE | 2019-06-14 08:52 | Urology Progress Note ---
Date of Service June 14, 2019 Assessment & Plan (1) Left ureteral stone: 89yo F POD #1 s/p emergent cysto, left stent insertion; sepsis with obstructing 3mm left midureteral stone, moderate hydro. Pt is subjectively and clinically improved today. Continue Rocephin while awaiting UC&S results, she will need a total of 14day course of abx based upon sensitivities. She was very hopeful to discharge home today. I reviewed expected clinical course and need for UC&S sensitivities prior to discharge. She understands. Will continue to follow while she is inpatient. Subjective 89yo F POD #1 s/p emergent cysto, left stent insertion; sepsis with obstructing 3mm left midureteral stone, moderate hydro Pt tolerated procedure well yesterday. Per Dr. Carrasquillo, pt did express purulent drainage from kidney with stent insertion. Pt states she subjectively feels better today but is still exhausted due to having little sleep with hospital environment. She is off supplemental O2, with improved BP today. Labs reviewed - modest improvement in leukocytosis, Creatinine returned to normal. She is currently pain free. Denies dysuria, hematuria or LUTS. She expresses concern over caring for her as she is responsible for all vegetables cook/meal prep once she returns home. UC&S prelim gram neg bacilli. Continue rocephin while awaiting sensitivities. Review of Systems Review of Systems: All systems reviewed & are unremarkable except as noted in HPI & below Physical Exam Constitutional: no acute distress and not ill appearing Eyes: no nystagmus ENMT: Ears: no hearing impairment Neck: trachea midline Respiratory: no respiratory distress and no cough Cardiovascular: Vessels: no JVD Chest (Breasts): Chest: normal inspection of chest Gastrointestinal (Abdomen): Inspection/Auscultation: abdomen not distended and no abdominal edema Percussion/Palpation: abdomen soft; abdomen nontender Musculoskeletal: Head/Neck/Chest: normocephalic and head atraumatic Skin: no rashes, warm and dry Neurologic: awake; not confused and not obtunded Psychiatric: Orientation: alert and oriented x 3 Eye Contact: good eye contact Affect: no depressed affect Genitourinary: no CVA tenderness Lymphatic: no lymphadenopathy and no lymphedema Results & Data Vital Signs (Past 12 Hours) Vital Signs Temp Pulse Pulse Resp BP Pulse Ox 06/14/19 07:30 36.5 C 88 20 142/76 H 90 06/14/19 03:06 36.5 C 85 18 103/54 L 90 06/13/19 23:59 37.1 C 94 H 18 116/68 92 Laboratory Results Laboratory Results - last 48 hr 06/12/19 06/12/19 06/12/19 09:25 09:25 11:56 WBC 16.61 H RBC 4.70 Hgb 13.9 Hct 42.9 MCV 91.3 MCH 29.6 MCHC 32.4 RDW Std Deviation 60.2 H RDW Coeff of Namita 17.8 H Plt Count 262 MPV 10.9 H Immature Gran % (Auto) 0.3 Neut % (Auto) 91.4 Lymph % (Auto) 6.5 Gregory % (Auto) 0.4 Eos % (Auto) 1.2 Baso % (Auto) 0.2 Immature Gran # (Auto) 0.05 H Neut # (Auto) 15.18 H Lymph # (Auto) 1.08 L Gregory # (Auto) 0.06 L Eos # (Auto) 0.20 Baso # (Auto) 0.04 ABG pH ABG pCO2 ABG pO2 ABG HCO3 ABG O2 Saturation ABG Base Excess Yasir Test Barometric Pressure Oxygen Given Sodium 144 Potassium 4.3 Chloride 110 H Carbon Dioxide 25 Anion Gap 9.0 BUN 26 H Creatinine 1.28 H Est Cr Clr Drug Dosing 29.7 Est GFR ( Amer) 43.5 Est GFR (Non-Af Amer) 37.6 BUN/Creatinine Ratio 20.5 H Glucose 133 H Calcium 9.5 Total Bilirubin 0.4 AST 17 ALT 22 Alkaline Phosphatase 91 Total Protein 7.1 Albumin 3.5 Globulin 3.6 Albumin/Globulin Ratio 1.0 Lipase 215 Urine Color Yellow Urine Appearance Cloudy A Urine pH 5.0 Ur Specific [place] 1.019 Urine Protein Negative Urine Glucose (UA) Negative Urine Ketones Negative Urine Blood Trace H Urine Nitrite Positive A Urine Bilirubin Negative Urine Urobilinogen Negative Ur Leukocyte Esterase 3+ H Urine WBC (Auto) >30 H Urine RBC (Auto) 0-4 U Hyaline Cast (Auto) 1-5 U Epithel Cells (Auto) >30 H Urine Bacteria (Auto) 3+ H 06/12/19 06/12/19 06/13/19 17:00 20:00 05:39 WBC 36.40 H* D RBC 3.87 L Hgb 11.5 L Hct 35.5 L MCV 91.7 MCH 29.7 MCHC 32.4 RDW Std Deviation 62.2 H RDW Coeff of Namita 18.3 H Plt Count 157 MPV 10.0 Immature Gran % (Auto) Neut % (Auto) Lymph % (Auto) Gregory % (Auto) Eos % (Auto) Baso % (Auto) Immature Gran # (Auto) Neut # (Auto) Lymph # (Auto) Gregory # (Auto) Eos # (Auto) Baso # (Auto) ABG pH 7.42 ABG pCO2 32 L ABG pO2 58 L ABG HCO3 20 ABG O2 Saturation 89.6 L ABG Base Excess -3.3 Yasir Test Pos Barometric Pressure 737.4 Oxygen Given 10L Sodium Potassium Chloride Carbon Dioxide Anion Gap BUN Creatinine Est Cr Clr Drug Dosing Est GFR ( Amer) Est GFR (Non-Af Amer) BUN/Creatinine Ratio Glucose Calcium Total Bilirubin AST ALT Alkaline Phosphatase Total Protein Albumin Globulin Albumin/Globulin Ratio Lipase Urine Color Yellow Urine Appearance Cloudy A Urine pH 5.0 Ur Specific [place] 1.019 Urine Protein Negative Urine Glucose (UA) Negative Urine Ketones Negative Urine Blood Trace H Urine Nitrite Positive A Urine Bilirubin Negative Urine Urobilinogen Negative Ur Leukocyte Esterase 2+ H Urine WBC (Auto) >30 H Urine RBC (Auto) 5-10 H U Hyaline Cast (Auto) 1-5 U Epithel Cells (Auto) 5-10 H Urine Bacteria (Auto) 2+ H 06/13/19 06/14/19 06/14/19 05:39 05:07 05:07 WBC 30.09 H* RBC 3.93 L Hgb 11.5 L Hct 35.7 L MCV 90.8 MCH 29.3 MCHC 32.2 RDW Std Deviation 61.8 H RDW Coeff of Namita 18.5 H Plt Count 147 MPV 10.5 H Immature Gran % (Auto) Neut % (Auto) Lymph % (Auto) Gregory % (Auto) Eos % (Auto) Baso % (Auto) Immature Gran # (Auto) Neut # (Auto) Lymph # (Auto) Gregory # (Auto) Eos # (Auto) Baso # (Auto) ABG pH ABG pCO2 ABG pO2 ABG HCO3 ABG O2 Saturation ABG Base Excess Yasir Test Barometric Pressure Oxygen Given Sodium 142 144 Potassium 4.6 3.6 D Chloride 111 H 116 H Carbon Dioxide 22 20 L Anion Gap 9.0 8.0 BUN 31 H 21 H Creatinine 2.16 H D 1.03 Est Cr Clr Drug Dosing 17.6 36.9 Est GFR ( Amer) 23.1 56.6 Est GFR (Non-Af Amer) 19.9 48.8 BUN/Creatinine Ratio 14.2 20.5 H Glucose 95 75 Calcium 7.9 L D 7.9 L Total Bilirubin 0.3 0.4 AST 21 24 ALT 16 17 Alkaline Phosphatase 79 104 Total Protein 5.6 L D 5.7 L Albumin 2.4 L 2.4 L Globulin 3.2 3.3 Albumin/Globulin Ratio 0.7 L 0.7 L Lipase Urine Color Urine Appearance Urine pH Ur Specific [place] Urine Protein Urine Glucose (UA) Urine Ketones Urine Blood Urine Nitrite Urine Bilirubin Urine Urobilinogen Ur Leukocyte Esterase Urine WBC (Auto) Urine RBC (Auto) U Hyaline Cast (Auto) U Epithel Cells (Auto) Urine Bacteria (Auto)
--- NOTE | 2019-06-14 12:29 | Anesthesiology Progress Note ---
Date of Service June 14, 2019 Anesthesia Post Procedure Vital Signs Vital Signs: Temp Pulse Pulse Resp BP Pulse Ox Pulse Ox 06/14/19 11:17 36.4 C L 84 18 138/76 93 06/14/19 09:04 92 06/14/19 07:30 36.5 C 88 20 142/76 H 90 06/14/19 03:06 36.5 C 85 18 103/54 L 90 06/13/19 23:59 37.1 C 94 H 18 116/68 92 06/13/19 19:22 36.9 C 94 H 17 105/65 92 06/13/19 15:47 36.8 C 77 18 102/59 L 95 06/13/19 14:29 96 H 18 100/55 L 96 06/13/19 14:08 95/54 L 06/13/19 13:16 06/13/19 13:00 36.8 C 77 18 96/58 L 96 Pulse Ox 06/14/19 11:17 06/14/19 09:04 06/14/19 07:30 06/14/19 03:06 06/13/19 23:59 06/13/19 19:22 06/13/19 15:47 06/13/19 14:29 06/13/19 14:08 06/13/19 13:16 94 06/13/19 13:00 Pain Intensity Left Flank: Pain Intensity: 0 Notes Mental Status: alert / awake / arousable and participated in evaluation Nausea / Vomiting: adequately controlled Pain: adequately controlled Airway Patency, RR, SpO2: stable & adequate BP & HR: stable & adequate Hydration State: stable & adequate
[2019-06-14] MEDS: cefTRIAXone SODIUM 1,000 MG in DEXTROSE 5% 50 ML IV SCH (12:32)
--- NOTE | 2019-06-14 13:50 | Hospitalist Progress Note ---
Date of Service June 14, 2019 Assessment & Plan (1) Sepsis: - Urosepsis in setting of left sided stone -- see below. - Leukocytosis, hypotension with positive urinalysis. - IV fluid hydration discontinued. (2) Hypotension: - SBP 90's in setting of urosepsis on 06/13 -- now improved with IV fluid hydration. - Will continue to monitor -- IV fluids d/c'ed. (3) Ureterolithiasis: - CT A/P with 3 mm obstructing calculus of mid left ureter, moderate left hydroureteronephrosis and several non obstructing mid and lower pole left renal calcifications. - Urology consulted, appreciate input. S/p emergent cysto and left stent insertion on 06/13. - Zofran prn nausea/vomiting; Morphine prn pain. (4) UTI (urinary tract infection): - UC pos for E. coli. - Continue Ceftriaxone; will need 14 day course of antibiotics per urology. (5) Leukocytosis: - WBC increased to 36.4 in setting of obstructive left sided stone and UTI. - WBC now improving -- trend daily. (6) Acute respiratory failure with hypoxia: - Now weaned to room air. - CXR showed bibasilar atelectasis, suspected trace left pleural effusion. - Encourage IS use q1hr WA. (7) PARVIZ (acute kidney injury): - Creatinine increased to 2.16, related to obstruction in setting of left sided stone. - Creat improved following left stent placement. - Monitor renal function daily. (8) HLD (hyperlipidemia): - Continue statin as prescribed. (9) Anemia: - Hgb below baseline as expected with IV fluids. - H/o iron deficiency anemia, most recent iron studies in March 2019. - Continue home ferrous sulfate supplementation. (10) DVT prophylaxis: - TEDs, SCDs; resume Heparin q12hr . Dispo: Med/surg for urosepsis; discharge likely on 06/15/19. Supervising Physician Co-Signing Physician Notes PA Supervision Note: I did not personally see or examine the patient today, but I verified all daly points of FABRIZIO Watts's assessment and plan with the following exceptions/additions: None Subjective Pt. feels better overall today -- denies fever/chills, left flank pain, hematuria or dysuria. Review of Systems Review of Systems: All systems reviewed & are unremarkable except as noted in HPI & below Constitutional: no fever, no chills, no fatigue, no weakness and no anorexia Respiratory: no cough, no dyspnea, no dyspnea on exertion and no wheezing Cardiovascular: no chest pain, no palpitations and no edema Gastrointestinal: no abdominal pain, no nausea, no vomiting and no constipation Genitourinary: no dysuria, no difficulty urinating and no hematuria Musculoskeletal: no back pain and no joint pain Integumentary: no non-healing lesions Physical Exam Physical Exam: General: Resting comfortably HEENT: NC/AT; PERRLA with EOMI; [place] conjunctiva, MMM. No erythema of posterior pharynx Neck: Supple and nontender Cardiac: RRR Lungs: CTA bilaterally Abdomen: Bowel normoactive X 4; Nontender to palpation Extremities: Warm. No edema present Neuro: No focal weakness Skin: No rash Results & Data Vital Signs (Past 12 Hours) Vital Signs Temp Pulse Pulse Resp BP Pulse Ox Pulse Ox 06/14/19 11:17 36.4 C L 84 18 138/76 93 06/14/19 09:04 92 06/14/19 07:30 36.5 C 88 20 142/76 H 90 06/14/19 03:06 36.5 C 85 18 103/54 L 90 Laboratory Results 06/14/19 06/14/19 Range/Units 05:07 05:07 WBC 30.09 H* (4.8-10.8) K/uL RBC 3.93 L (4.2-5.4) M/uL Hgb 11.5 L (12.0-16.0) g/dL Hct 35.7 L (37-47) % MCV 90.8 (80-100) fL MCH 29.3 (25-34) pg MCHC 32.2 (32-36) g/dL RDW Std Deviation 61.8 H (36.4-46.3) fL RDW Coeff of Namita 18.5 H (11.5-14.5) % Plt Count 147 (130-400) K/uL MPV 10.5 H (7.4-10.4) fL Sodium 144 (136-145) mmol/L Potassium 3.6 D (3.5-5.1) mmol/L Chloride 116 H (98-107) mmol/L Carbon Dioxide 20 L (21-32) mmol/L Anion Gap 8.0 (3-11) BUN 21 H (7-18) mg/dl Creatinine 1.03 (0.6-1.2) mg/dl Est Cr Clr Drug Dosing 36.9 ml/min Est GFR ( Amer) 56.6 Est GFR (Non-Af Amer) 48.8 BUN/Creatinine Ratio 20.5 H (10-20) Glucose 75 (70-99) mg/dl Calcium 7.9 L (8.5-10.1) mg/dl Total Bilirubin 0.4 (0.2-1) mg/dl AST 24 (15-37) U/L ALT 17 (12-78) U/L Alkaline Phosphatase 104 (45-117) U/L Total Protein 5.7 L (6.4-8.2) gm/dl Albumin 2.4 L (3.4-5.0) gm/dl Globulin 3.3 (2.5-4.0) gm/dl Albumin/Globulin Ratio 0.7 L (0.9-2) PG Care Time/CCT Total # of Minutes Spent Total Time Spent with Patient: Total time spent is greater than 50% in coordination of care (as documented) at patient's floor/unit and/or counseling patient: (1) Leukocytosis Leukocytosis type: unspecified Qualified Code(s): D72.829 - Elevated white blood cell count, unspecified
[2019-06-14] MEDS: SIMVASTATIN 20 MG TAB PO SCH (20:21)
[2019-06-14] MEDS: HEPARIN SOD 5,000 UNIT/0.5 ML VIAL SQ SCH (20:24)
[2019-06-15 07:13] LABS: Hematocrit (blood only) 36.1 % (37-47); Hemoglobin 11.9 g/dL (12.0-16.0); Mean Corpuscular Hemoglobin 29.5 pg (25-34); Mean Corpuscular Volume 89.4 fL (80-100); Mean Platelet Volume 10.3 fL (7.4-10.4); Platelet Count 158 K/uL (130-400); RDW Coefficient of Variation 17.7 % (11.5-14.5); RDW Standard Deviation 59.2 fL (36.4-46.3); Red Blood Count 4.04 M/uL (4.2-5.4); White Blood Count 25.73 K/uL (4.8-10.8)
[2019-06-15 07:56] LABS: Albumin Globulin Ratio 0.7 (0.9-2); Albumin Level 2.4 gm/dl (3.4-5.0); BUN Creatinine Ratio 17.2 (10-20); Bilirubin,Total 0.4 mg/dl (0.2-1); Calcium 8.5 mg/dl (8.5-10.1); Creatinine Clr Calc Pharmacy 51.4 ml/min; Est GFR (African American) 84.4; Est GFR (Non-African American) 72.8; Globulin 3.5 gm/dl (2.5-4.0); Potassium 3.6 mmol/L (3.5-5.1); Total Protein 5.9 gm/dl (6.4-8.2)
[2019-06-15] MEDS: FERROUS SULFATE 325 MG TAB PO SCH (08:28)
[2019-06-15] MEDS: HEPARIN SOD 5,000 UNIT/0.5 ML VIAL SQ SCH (08:29)
[2019-06-15] MEDS: CEROVITE ADV FORMULA TAB PO SCH (08:29)
[2019-06-15] MEDS ORDERED: CEFDINIR 300 MG CAP PO SCH (09:15)
[2019-06-15] MEDS: ACETAMINOPHEN 325 MG TAB PO PRN (11:51)
--- NOTE | 2019-06-15 14:30 | Discharge Summary ---
Date of Service June 15, 2019 Admission HPI Per Admitting Provider This is an 89 yo F with PMHx of anemia on iron supplementation who presents with acute onset of left sided flank pain and lower abdominal pain which woke her from sleep at 6:44 am. Pt notes she thought this was a pulled muscle initially, so did some stretching and exercise, but did not improve. She went back to bed but pain was not improved with anything. She became nauseous and vomited 5 times since this morning. Pt did not take any of her morning medications today. She has received 2 doses of dilaudid, a total of 1mg, since being in the ER and her pain is essentially resolved, but she is somnolent upon my exam. Her is present at bedside. notes that a urine sample was taken at [facility] and there was possibly a UTI, however urine sample is not available here yet as she has not voided. WBC is 16K, Cr. elevated at 1.28, BUN 26. CT abd/pelvis showing a 3 mm obstructing calculus mid left ureter. Moderate left hydroureteronephrosis. Several nonobstructing mid and lower pole left renal calcifications. Admission Exam Per Admitting Provider General: awakens to verbal stimuli, answers questions appropriately, no apparent distress Head: Normocephalic, atraumatic ENT: + pupils are pinpoint, PERRL, EOMI, no pharyngeal exudate, mucous membranes moist Chest: Clear to auscultation, on room air, no adventitious breath sounds Cardiac: Regular rate and rhythm, no murmur, no JVD, normal peripheral pulses, good capillary refill Abdominal: NABS x 4 quadrants, soft, nontender to palpation, no rebound, guarding or tenderness Extremities: Normal inspection, no peripheral edema or erythema, calfs nontender to palpation Psych: Normal mood and affect Neuro: AAO x 3, no motor deficits, speech is clear Principal Diagnosis Urosepsis, UTI, Left Ureter Stone Discharge Exam General: Resting comfortably HEENT: NC/AT; PERRLA with EOMI; [place] conjunctiva, MMM. No erythema of posterior pharynx Neck: Supple and nontender Cardiac: RRR Lungs: CTA bilaterally Abdomen: Bowel normoactive X 4; Nontender to palpation. No flank tenderness noted. Extremities: Warm. No edema present. Neuro: No focal weakness Skin: No rash Discharge Data Allergies Allergy/AdvReac Type Severity Reaction Status Date / Time No Known Allergies Allergy Unverified 06/12/19 10:11 Consultations 06/12/19 10:53 Consult Case Management - Discharge Planning Routine 06/12/19 11:00 ED Decision to Admit Stat 06/13/19 08:05 Consult Urology Routine Procedures Performed Operation Date: 06/13/19 07:00 Actual Procedures p Cystoscopy, Left Ureteral Stent Placement(Left) - John Carrasquillo MD Ordered Studies 06/12/19 09:32 CT abd pelvis wo con Stat 06/13/19 09:55 FL fluoroscopy <1hr Routine 06/13/19 13:00 FL KUB Routine Hospital Course (1) Sepsis: Urosepsis in setting of left sided stone -- see below. Leukocytosis, hypotension with positive urinalysis. Received IV fluids, IV abx Hypotension resolved by time of discharge. (2) Hypotension: SBP 90's in setting of urosepsis on 06/13 -- now resolved with IV fluid hydration and treatment with abx. (3) Ureterolithiasis: CT A/P with 3 mm obstructing calculus of mid left ureter, moderate left hydroureteronephrosis and several non obstructing mid and lower pole left renal calcifications. Urology consulted, appreciate input. S/p emergent cysto and left stent insertion on 06/13. Will need to follow up with urology as outpatient. Consider Oxybutynin for bladder spasms/pain. (4) UTI (urinary tract infection): UC pos for E. coli. Converted to Ceftriaxone to Cefdinir 300 mg BID for 14 day course. (5) Leukocytosis: WBC increased to 36.4 in setting of obstructive left sided stone and UTI. WBC now improved down to 25k -would follow CBC as outpt to ensure resolution (6) Acute respiratory failure with hypoxia: Now weaned to room air. CXR showed bibasilar atelectasis, suspected trace left pleural effusion. Encouraged IS use q1hr WA. (7) PARVIZ (acute kidney injury): Creatinine increased to 2.16, related to obstruction in setting of left sided stone. Creat improved following left stent placement, down to normal. No indication for further monitoring. (8) HLD (hyperlipidemia): Continued statin as prescribed. (9) Anemia: Hgb below baseline as expected with IV fluids. H/o iron deficiency anemia, most recent iron studies in March 2019. Continued home ferrous sulfate supplementation. (10) Elevated alkaline phosphatase level: Alk phos level trending up, other LFTs WNL. Recommend outpatient monitoring. (11) DVT prophylaxis: TEDs, SCDs; Heparin q12hr . Stable for discharge to home on 06/15/19. Total Time Total Time Spent Total Time Spent (In Minutes): >30 minutes Total Time Includes: Examination of the Patient, Discharge Planning, Medication Reconciliation, Communication With Other Providers and Other Discharge Plan Discharge Items Patient Disposition: Home - Self-Care Reason For Visit: NEPHROLITHIASIS Discharge Diagnosis: Left sided nephrolithiasis Condition on Discharge: Good Activity: As commented below Exercise/Sports: Wait until after follow-up appointment Non-emergency contact: Primary Care Provider and Urologist Call non-emergency contact if: you have any medication questions, your symptoms worsen, your pain is not controlled, your pain is worsening, your pain is unusual for you, your pain is concerning for you and you have a fever Follow-up/Referrals: John Carrasquillo MD [Physician] - (Please, follow up at [facility] Urology Office with Dr. Carrasquillo. *A nurse from this office will call you to arrange this appointment. If you have any questions, call the office at [phone].) Keo Stephens MD [Physician] - 06/19/19 10:00 am (Please, follow up with Dr. Stephens on WednesdayJune 19 at 10:00 am. *If you need to change this appointment, call the office at [phone].) Diet: Heart Healthy Addtl Attending Provider Instructions: 1. Urosepsis in setting of left sided stone * Please continue Cefdinir 300 mg twice daily to complete a 14 day course -- prescription was sent to your pharmacy. * You will need to follow up with urology as an outpatient -- their office will contact you regarding a time/date of appointment. Pending Studies at Discharge: No Stand-Alone Forms: My [facility] Medications and DC Order Prescriptions: New cefdinir 300 mg Capsule 300 mg PO BID 10 Days Qty: 20 RF: 0 Continued simvastatin 20 mg tablet 20 mg PO HS RF: 0 ferrous sulfate 325 mg (65 mg iron) Tablet 325 mg PO BID RF: 0 ranitidine HCl 150 mg tablet 150 mg PO BID RF: 0 Women's Complex Tablet 1 tab PO QAM RF: 0 PreserVision AREDS-2 [id number]-mg capsule 1 tab PO QAM RF: 0 acetaminophen [Tylenol Extra Strength] 500 mg Tablet 500 mg PO Q6H PRN (Reason: Pain) RF: 0 Discharge Orders: Discharge Order (Routine); Ordered 06/15/19 Ordered By: Beronica Pitts Admission Data Admit Date/Time: 06/12/19 10:52 Attending Provider: Beronica Pitts Admit Provider: Cassandra Solis Primary Care Provider: Luz Paniagua Other Providers: Cassandra oSlis ; John Carrasquillo Other Interventions: Discharge Summary Assessment (RN) Last Done: 06/15/19 13:04 DC Date/Time DO NOT enter until pt leaves facility: 06/15/19 14:26 Supervising Physician Co-Signing Physician Notes PA Supervision Note: I personally saw and examined the patient. I verified all daly points and agree with FABRIZIO Watts with the following exceptions and/or additions: Pt feleing better, no further chills. Pain in left flank and abomen is much improved but persists somewhat. Haivn gcontinued urinary urgency and frequency, no hematuria Is afebrile NAD, sitting in chair RRR no mgr CTAB no wcr ABd +BS sof tND +Left CVA tenderness, neg CVA ttp on right Ext no edema or calf tenderness Stable for dc to home on po abx, f/u with Urology for stone definitive management
--- NOTE | 2019-06-17 09:30 | Operative Report ---
Post Operative Report Pre & Post Diagnosis Operation Date: 06/13/19 07:00 Pre-Op Diagnosis: NEPHROLITHIASIS Post-Op Diagnosis: NEPHROLITHIASIS Procedure Operation Date: 06/13/19 07:00 Actual Procedures p Cystoscopy, Left Ureteral Stent Placement(Left) - John Carrasquillo MD Surgeon Baron Carrasquillo MD [employer] none Estimated Blood Loss 0 Findings Consistent with Post-Op Diagnosis Specimens none Description of Procedure The patient was identified in the preopertive holding area, appropriate informed consents were reviewed and completed and the patient was transferred to the operative suite. Upon arrival, appropriate antibiotics and anesthesia were administered and the patient was placed in dorsal lithotomy position and prepped and draped in sterile fashion. To begin the case a 22 [place] cystoscope was passed per urethra. Inspection revealed no gross abnormalities of the bladder. The left ureteral orifice was cannulated with a sensor wire which was advanced to the kidney under fluoroscopic guidance. There was an immediate discharge of purulent appearing urine. A 6 [place] by 24 cm stent was placed over the wire seeing a good curl in the kidney as well as the bladder. The bladder was decompressed and the case concluded. She was returned to the recovery room in stable condition without complication. I attest to the content of the Intraoperative Record and any orders documented therein. Any exceptions are noted below.
== END 2019-06-15 14:26 | disposition home or self-care (01) | DRG 659 ==
LOC: ED 09:14 → 3N 10:52 → SUATTDRO 10:52 → 3N 12:16